=== PATIENT | female | born 1990 | race Caucasian/White ===

== ENCOUNTER 2022-04-15 09:38 | Outpatient (CLI) | payer BC, OTHER | END 2022-04-15 10:39 | disposition home or self-care (01) | LOC: NST 09:38 | PROVIDERS: ATTEND Obstetrics & Gynecology Maternal & Fetal Medicine | DX: Z34.83 Encounter for supervision of other normal pregnancy, third trimester (principal) ==

== ENCOUNTER 2022-06-30 14:51 | Outpatient (CLI) | payer OTHER ==
[~2022-06-30 14:51] MED LIST: PRENATAL TABLE1 EAC3 PO
== END 2022-06-30 15:07 | disposition home or self-care (01) ==
LOC: RAD 14:51
PROVIDERS: ATTEND Obstetrics & Gynecology Maternal & Fetal Medicine
DX: R14.0 Abdominal distension (gaseous) (principal)

== ENCOUNTER 2022-07-05 16:37 | Emergency (ER) | payer OTHER ==
[~2022-07-05] VITALS: Ht 162.6 cm; Wt 47.6 kg
== END 2022-07-06 00:33 | disposition home or self-care (01) ==
LOC: ER 16:37
DX: R10.9 Unspecified abdominal pain (principal)

== ENCOUNTER 2024-02-21 15:22 | Inpatient (IN) | payer OTHER ==
[~2024-02-21] VITALS: Ht 162.6 cm; Wt 55.3 kg
[2024-03-19] VITALS (9 sets, daily range): BP systolic 114–130; BP diastolic 68–86; O2SAT 99
[2024-03-19] MEDS ORDERED: OXYTOCIN 500 ML IV SCH (07:00)
[2024-03-19] MEDS ORDERED: AMPICILLIN SODIUM 2,000 MG VIAL ONE (08:13)
[2024-03-19] MEDS ORDERED: AMPICILLIN SODIUM 2,000 MG VIAL IV ONE (08:30)
[2024-03-19] MEDS ORDERED: OMEGA-31000 MG PO (08:54)
[2024-03-19] MEDS ORDERED: AMPICILLIN SODIUM 1,000 MG VIAL IV SCH (09:00)
[2024-03-19 09:03] LABS: HEMATOCRIT 38.9 % (36.0-45.00); MEAN CELL VOLUME 91.1 fL (80.00-100.00); MEAN CORPUSCULAR HEMOGLOBIN 30.6 pg (27.00-32.0); MEAN CORPUSCULAR HGB CONC 33.5 g/dl (32.0-36.0); PLATELET COUNT 156 K/uL (150-450); RED BLOOD COUNT 4.26 M/uL (4.00-6.00); RED CELL DISTRIBUTION WIDTH 12.3 % (11.5-14.5)
[2024-03-19 09:27] LABS: INR < 0.93; PARTIAL THROMBOPLASTIN TIME 29.8 SECONDS (22.0-34.0)
[2024-03-19 09:45] LABS: BILIRUBIN TOTAL 0.34 mg/dL (0.3-1.2); CALCIUM 9.3 mg/dL (8.5-10.1); CREATININE SERUM 0.71 mg/dL (0.55-1.02); GFR 95.4; GLOBULINA 4.2 G/DL (2.4-3.5); POTASSIUM 3.6 mEq/L (3.5-5.1); TOTAL PROTEIN 7.2 gm/dL (6.4-8.2)
[2024-03-19] MEDS ORDERED: ERYTHROMYCIN BASE OPHT 1GM EACH TUBE OP ONE ×2 (10:16→11:30)
[2024-03-19] MEDS ORDERED: OXYTOCIN 20 UNITS/1000ML RL PIGGYBAG IV ONE (10:16)
[2024-03-19] MEDS ORDERED: LIDOCAINE HCL 1% 10ML VIAL ONE (10:16)
[2024-03-19] MEDS ORDERED: CHLORHEXIDINE GLUCONATE 120 ML BOTTLE TOP ONE (10:16)
[2024-03-19] MEDS ORDERED: OXYTOCIN 1,000 ML IV SCH (11:15)
[2024-03-19] MEDS ORDERED: IBUprofen 400 MG TABLET PO PRN (11:15)
[2024-03-19] MEDS ORDERED: CHLORHEXIDINE GLUCONATE 120 ML BOTTLE TOP SCH (11:15)
[2024-03-19] MEDS ORDERED: LIDOCAINE HCL 1% 10ML VIAL IJ ONE (11:30)
[2024-03-20] VITALS: BP 111/69
[2024-03-20 06:33] LABS: HEMATOCRIT 32.3 % (36.0-45.00); HEMOGLOBIN 11.1 g/dL (12.0-15.00); MEAN CELL VOLUME 88.8 fL (80.00-100.00); MEAN CORPUSCULAR HEMOGLOBIN 30.7 pg (27.00-32.0); MEAN CORPUSCULAR HGB CONC 34.6 g/dl (32.0-36.0); RED BLOOD COUNT 3.63 M/uL (4.00-6.00); RED CELL DISTRIBUTION WIDTH 12.1 % (11.5-14.5)
[2024-03-20 06:40] LABS: PLATELET COUNT 123 K/uL (150-450)
[2024-03-20 08:53] VITALS: BP 113/77
== END 2024-03-20 13:02 | disposition home or self-care (01) | DRG 807 ==
LOC: OB/GYN 03-19 06:43 → LDR 03-19 06:43 → OB/GYN 03-19 11:13
PROVIDERS: Obstetrics & Gynecology; ADMIT Obstetrics & Gynecology; ATTEND Obstetrics & Gynecology
PROC: 10E0XZZ Delivery of Products of Conception, External Approach (ICD-10-PCS; principal; 2024-03-19)
PROC: 0KQM0ZZ Repair Perineum Muscle, Open Approach (ICD-10-PCS; 2024-03-19)
PROC: 4A1HXCZ Monitoring of Products of Conception, Cardiac Rate, External Approach (ICD-10-PCS; 2024-03-19)
DX: O70.1 Second degree perineal laceration during delivery (principal); Z37.0 Single live birth; Z3A.39 39 weeks gestation of pregnancy; Z20.822 Contact with and (suspected) exposure to COVID-19

== ENCOUNTER 2024-09-02 09:00 | Outpatient (CLI) | payer OTHER ==
[~2024-09-02 09:00] MED LIST changes: +OMEGA-31000 MG PO
== END 2024-09-02 09:02 | disposition home or self-care (01) ==
LOC: SONOGRAMA 09:00
PROVIDERS: ATTEND Obstetrics & Gynecology Maternal & Fetal Medicine
DX: N60.19 Diffuse cystic mastopathy of unspecified breast (principal); N63.0 Unspecified lump in unspecified breast; N60.11 Diffuse cystic mastopathy of right breast